=== PATIENT | female | born 1990 | race African-American/Black ===

== ENCOUNTER 2019-01-20 02:06 | Emergency (ER) | payer BC ==
[~2019-01-20] VITALS: Ht 172.7 cm; Wt 77.1 kg
--- NOTE | 2019-01-20 03:30 | NUR ---
PT BIBSELF C/O UPPER ABDOMINAL PAIN X1 DAY. PT DESCRIBES PAIN CRAMP AND PRESSURE LIKE, SIMILIAR TO PERIOD CRAMPS. PT DENIES NAUSEA, VOMITTING, DIARREA, FEVER, DYSURIA. PT AAOX4. RESPIRATIONS EVEN AND UNLABORED. SKIN WARM AND INTACT. VITAL SIGNS STABLE. AMBULATORY WITH STEADY GAIT. NO ACUTE DISTRESS NOTED AT THIS TIME. WILL CONTINUE TO MONITOR
--- NOTE | 2019-01-20 04:30 | NUR ---
RADIOLOGY AT BEDSIDE FOR KUB
[2019-01-20] MEDS ORDERED: SIMETHICONE 80 MG TAB.CHEW ONE (04:44)
[2019-01-20] MEDS ORDERED: SIMETHICONE 80 MG TAB.CHEW PO ONE (05:00)
--- NOTE | 2019-01-20 05:07 | NUR ---
Patient discharged to home in stable condition. Written and verbal after care instructions given. Patient verbalizes understanding of instruction.Pt ambulatory with a steady gait
[2019-01-20 05:08] VITALS: BP 122/79
== END 2019-01-20 05:09 | disposition home or self-care (01) ==
LOC: ER 02:10
DX: R14.1 Gas pain (principal); Z87.442 Personal history of urinary calculi
CPT/HCPCS: 74018; 84703-TC